=== PATIENT | male | born 1970 | race Caucasian/White ===

== ENCOUNTER 2021-12-05 03:25 | Outpatient (RCR) | payer MEDICAID, SELFPAY ==
[2021-12-05] MEDS: Normal Saline Flush 10 ML SYR IVP (12:35)
[2021-12-05 13:26] LABS: HCT 45.6 % (40.0-50.0); HGB 15.4 g/dL (13.5-17.5); MCH 31.6 pg (27.0-33.0); MCHC 33.8 % (32.0-36.0); MCV 93.6 fL (80-95); MPV 11.6 fL (8.0-11.0); Nucleated RBC 0 %; Platelet Count 119 10^3/uL (130-400); RBC 4.87 10^6/uL (4.36-5.78); RDW 11.3 % (11.8-14.1); RDW-SD 39.2 fL
[2021-12-05 13:36] LABS: ALT 72 U/L (16-63); AST 35 U/L (15-37); Albumin 3.3 g/dL (3.4-5.0); Alkaline Phosphatase 43 U/L (46-116); Anion Gap 5.3 mmol/L (3-11); BUN 12 mg/dL (7-18); Bilirubin, Total 1.2 mg/dL (0.2-1.0); CO2 29.7 mmol/L (21.0-32.0); CREATININE 0.7 mg/dL (0.70-1.30); Calcium 8.9 mg/dL (8.5-10.1); Chloride 97 mmol/L (98-107); Glucose 162 mg/dL (74-106); Magnesium 1.8 mg/dL (1.8-2.4); Potassium 4.1 mmol/L (3.5-5.1); Sodium 132 mmol/L (136-145); Total Protein 7.4 g/dL (6.4-8.2)
[2021-12-05 13:44] LABS: WBC 0.77 10^3/uL (4.4-10.8)
[2021-12-05 13:53] LABS: Absolute Lymphocyte Count 0.45 10^3/uL (1.2-3.4); Absolute Monocyte Count 0.05 10^3/uL (0.1-0.8); Absolute Neutrophil Count 0.28 10^3/uL (1.2-6.7); Atypical Lymphocytes % 4; Bands % 8
[2021-12-05 13:54] LABS: Diff Comment Manual Differential; RBC Morphology Normal
== END 2021-12-05 23:59 | disposition home or self-care (01) ==
LOC: INF 03:25
PROVIDERS: PCP Family Medicine; Visit Provider Internal Medicine Hematology & Oncology
DX: C02.9 Malignant neoplasm of tongue, unspecified (principal); Z45.2 Encounter for adjustment and management of vascular access device
CPT/HCPCS: 36591; 80053; 83735; 85025

== ENCOUNTER 2022-01-02 02:23 | Outpatient (RCR) | payer MEDICAID, SELFPAY ==
[2021-12-19] MEDS: Normal Saline Flush 10 ML SYR IVP (07:21)
[2021-12-19 07:42] LABS: Abs Immature Grans 0.05 10^3/uL (0.0-0.06); Absolute Basophil Count 0.06 10^3/uL (0.0-0.2); Absolute Eosinophil Count 0.04 10^3/uL (0.0-0.7); Absolute Lymphocyte Count 1.08 10^3/uL (1.2-3.4); Absolute Monocyte Count 0.66 10^3/uL (0.1-0.8); Absolute Neutrophil Count 7.01 10^3/uL (1.2-6.7); Basophils % 0.7; Eosinophils % 0.4; Immature Grans % 0.6; Lymphocytes % 12.1; MCH 30.7 pg (27.0-33.0); MCHC 32.6 % (32.0-36.0); MCV 94.3 fL (80-95); MPV 11.1 fL (8.0-11.0); Monocytes % 7.4; Neutrophils % 78.8; Nucleated RBC 0 %; Platelet Count 193 10^3/uL (130-400); RBC 4.56 10^6/uL (4.36-5.78); RDW 11.7 % (11.8-14.1); RDW-SD 40.5 fL
[2021-12-19 07:58] LABS: ALT 36 U/L (16-63); AST 17 U/L (15-37); Albumin 3.1 g/dL (3.4-5.0); Alkaline Phosphatase 48 U/L (46-116); Anion Gap 6.4 mmol/L (3-11); BUN 7 mg/dL (7-18); Bilirubin, Total 0.7 mg/dL (0.2-1.0); CO2 29.6 mmol/L (21.0-32.0); CREATININE 0.8 mg/dL (0.70-1.30); Calcium 8.5 mg/dL (8.5-10.1); Chloride 104 mmol/L (98-107); Glucose 178 mg/dL (74-106); Magnesium 1.8 mg/dL (1.8-2.4); Potassium 4.4 mmol/L (3.5-5.1); Sodium 140 mmol/L (136-145); Total Protein 6.9 g/dL (6.4-8.2)
== END 2022-01-05 23:59 | disposition home or self-care (01) ==
LOC: INF 02:23
PROVIDERS: PCP Family Medicine; Visit Provider Internal Medicine Hematology & Oncology
DX: C02.9 Malignant neoplasm of tongue, unspecified (principal); Z45.2 Encounter for adjustment and management of vascular access device
CPT/HCPCS: 36591; 80053; 83735; 85025

== ENCOUNTER → 2022-01-11 00:26 | Outpatient (CLI) | payer MEDICAID, SELFPAY ==
--- NOTE | 2022-01-11 10:42 | ST.MBS_ITS ---
Coding CPT Codes [facility] FLUOROSCOPY/SWALLOW - [id number] ([id number])
--- NOTE | 2022-01-11 10:42 | ST.MBS ---
Coding CPT Codes [facility]ION FLUOROSCOPY/SWALLOW - [id number] ([id number])
== END ==
PROVIDERS: PCP Family Medicine; Visit Provider Preventive Medicine Undersea and Hyperbaric Medicine

== ENCOUNTER 2022-01-30 04:19 | Outpatient (RCR) | payer MEDICAID, SELFPAY ==
[2022-01-09] MEDS: Normal Saline Flush 10 ML SYR IVP (08:36)
[2022-01-09 08:47] LABS: Abs Immature Grans 0.03 10^3/uL (0.0-0.06); Absolute Basophil Count 0.03 10^3/uL (0.0-0.2); Absolute Eosinophil Count 0.15 10^3/uL (0.0-0.7); Absolute Lymphocyte Count 1.01 10^3/uL (1.2-3.4); Absolute Monocyte Count 0.46 10^3/uL (0.1-0.8); Absolute Neutrophil Count 3.73 10^3/uL (1.2-6.7); Basophils % 0.6; Eosinophils % 2.8; HCT 38.5 % (40.0-50.0); HGB 12.5 g/dL (13.5-17.5); Immature Grans % 0.6; Lymphocytes % 18.7; MCH 30.9 pg (27.0-33.0); MCHC 32.5 % (32.0-36.0); MCV 95.1 fL (80-95); MPV 10.7 fL (8.0-11.0); Monocytes % 8.5; Neutrophils % 68.8; Nucleated RBC 0 %; Platelet Count 121 10^3/uL (130-400); RBC 4.05 10^6/uL (4.36-5.78); RDW 12.5 % (11.8-14.1); RDW-SD 42.6 fL; WBC 5.41 10^3/uL (4.4-10.8)
[2022-01-09 08:59] LABS: ALT 20 U/L (16-63); AST 15 U/L (15-37); Albumin 2.6 g/dL (3.4-5.0); Alkaline Phosphatase 44 U/L (46-116); Anion Gap 6.4 mmol/L (3-11); BUN 8 mg/dL (7-18); Bilirubin, Total 0.6 mg/dL (0.2-1.0); CO2 28.6 mmol/L (21.0-32.0); CREATININE 0.7 mg/dL (0.70-1.30); Calcium 7.3 mg/dL (8.5-10.1); Chloride 105 mmol/L (98-107); Glucose 148 mg/dL (74-106); Magnesium 1.3 mg/dL (1.8-2.4); Potassium 3.7 mmol/L (3.5-5.1); Sodium 140 mmol/L (136-145); Total Protein 5.7 g/dL (6.4-8.2)
== END 2022-02-04 23:59 | disposition home or self-care (01) ==
LOC: INF 04:19
PROVIDERS: PCP Family Medicine; Visit Provider Internal Medicine Hematology & Oncology
DX: C02.9 Malignant neoplasm of tongue, unspecified (principal); Z45.2 Encounter for adjustment and management of vascular access device
CPT/HCPCS: 36591; 80053; 83735; 85025

== ENCOUNTER 2022-03-06 00:46 | Outpatient (RCR) | payer MEDICAID, SELFPAY ==
[2022-02-06] MEDS: Normal Saline Flush 10 ML SYR IVP (09:48)
[2022-02-06 09:56] LABS: Abs Immature Grans 0.02 10^3/uL (0.0-0.06); Absolute Basophil Count 0.04 10^3/uL (0.0-0.2); Absolute Eosinophil Count 0.14 10^3/uL (0.0-0.7); Absolute Lymphocyte Count 0.82 10^3/uL (1.2-3.4); Absolute Monocyte Count 0.57 10^3/uL (0.1-0.8); Absolute Neutrophil Count 3.47 10^3/uL (1.2-6.7); Basophils % 0.8; Eosinophils % 2.8; HCT 36.8 % (40.0-50.0); HGB 11.9 g/dL (13.5-17.5); Immature Grans % 0.4; Lymphocytes % 16.2; MCH 30.7 pg (27.0-33.0); MCHC 32.3 % (32.0-36.0); MCV 95 fL (80-95); MPV 11.3 fL (8.0-11.0); Monocytes % 11.3; Neutrophils % 68.5; Platelet Count 110 10^3/uL (130-400); RBC 3.87 10^6/uL (4.36-5.78); RDW-SD 48.7 fL; WBC 5.06 10^3/uL (4.4-10.8)
[2022-02-06 10:20] LABS: ALT 17 U/L (16-63); AST 17 U/L (15-37); Albumin 3.2 g/dL (3.4-5.0); Alkaline Phosphatase 39 U/L (46-116); Anion Gap 4.1 mmol/L (3-11); BUN 10 mg/dL (7-18); Bilirubin, Total 0.5 mg/dL (0.2-1.0); CO2 31.9 mmol/L (21.0-32.0); CREATININE 0.7 mg/dL (0.70-1.30); Calcium 8.6 mg/dL (8.5-10.1); Chloride 103 mmol/L (98-107); Glucose 133 mg/dL (74-106); Magnesium 1.9 mg/dL (1.8-2.4); Potassium 4.2 mmol/L (3.5-5.1); Sodium 139 mmol/L (136-145); Total Protein 6.7 g/dL (6.4-8.2)
[2022-02-12 16:10] VITALS: BP 148/84; PULSE 90; RESP 18; TEMP 36.5; O2SAT 99
[2022-02-12] MEDS: Normal Saline Flush 10 ML SYR IVP (16:12)
[2022-02-12] MEDS: Dexamethasone 10 MG/ML VIAL IVP (16:12)
[2022-02-12] MEDS: Normal Saline 1,000 ML 1000 ML IV (16:13)
[2022-02-12] MEDS: Heparin 500 UNITS/5 ML SYRINGE IV (16:13)
[2022-02-27] MEDS: Normal Saline Flush 10 ML SYR IVP (09:11)
[2022-02-27 09:18] LABS: Abs Immature Grans 0.13 10^3/uL (0.0-0.06); Absolute Basophil Count 0.03 10^3/uL (0.0-0.2); Absolute Eosinophil Count 0.01 10^3/uL (0.0-0.7); Absolute Lymphocyte Count 0.89 10^3/uL (1.2-3.4); Absolute Monocyte Count 0.54 10^3/uL (0.1-0.8); Absolute Neutrophil Count 2.65 10^3/uL (1.2-6.7); Basophils % 0.7; Eosinophils % 0.2; HCT 34.2 % (40.0-50.0); HGB 11.1 g/dL (13.5-17.5); Immature Grans % 3.1; Lymphocytes % 20.9; MCH 30.2 pg (27.0-33.0); MCHC 32.5 % (32.0-36.0); MCV 93 fL (80-95); MPV 11.5 fL (8.0-11.0); Monocytes % 12.7; Neutrophils % 62.4; Platelet Count 171 10^3/uL (130-400); RBC 3.67 10^6/uL (4.36-5.78); RDW 13.7 % (11.8-14.1); RDW-SD 46.5 fL; WBC 4.25 10^3/uL (4.4-10.8)
[2022-02-27 09:32] LABS: ALT 28 U/L (16-63); AST 14 U/L (15-37); Albumin 3.3 g/dL (3.4-5.0); Alkaline Phosphatase 45 U/L (46-116); Anion Gap 6.4 mmol/L (3-11); BUN 13 mg/dL (7-18); Bilirubin, Total 0.5 mg/dL (0.2-1.0); CO2 30.6 mmol/L (21.0-32.0); CREATININE 0.8 mg/dL (0.70-1.30); Calcium 9.1 mg/dL (8.5-10.1); Chloride 102 mmol/L (98-107); Glucose 115 mg/dL (74-106); Potassium 4.5 mmol/L (3.5-5.1); Sodium 139 mmol/L (136-145); Total Protein 7.1 g/dL (6.4-8.2)
[2022-03-06] MEDS: Dexamethasone 10 MG/ML VIAL IVP (13:59)
[2022-03-06] MEDS: Ondansetron 4 MG/2 ML VIAL 8 MG IVP (13:59)
[2022-03-06] MEDS: Normal Saline 1,000 ML 1000 ML IV (13:59)
[2022-03-06] MEDS: Heparin 500 UNITS/5 ML SYRINGE IV (14:00)
[2022-03-06] MEDS: Normal Saline Flush 10 ML SYR IVP (14:00)
[2022-03-06 14:10] VITALS: BP 116/80; PULSE 89; RESP 18; TEMP 37.3; O2SAT 96
== END 2022-03-07 23:59 | disposition home or self-care (01) ==
LOC: INF 00:46
PROVIDERS: PCP Family Medicine; Visit Provider Internal Medicine Hematology & Oncology
DX: C02.9 Malignant neoplasm of tongue, unspecified (principal); Z45.2 Encounter for adjustment and management of vascular access device
CPT/HCPCS: 36591; 80053; 96360; 96361; 96365; 96374; 96523; 83735; 85025; J1100; J2405

== ENCOUNTER 2022-04-04 02:26 | Outpatient (RCR) | payer MEDICAID, SELFPAY ==
[2022-03-08 00:06] VITALS: BP 116/80; PULSE 89; RESP 18; TEMP 37.3
[2022-04-04] MEDS: Normal Saline Flush 10 ML SYR IVP (07:44)
[2022-04-04 07:55] LABS: Abs Immature Grans 0.04 10^3/uL (0.0-0.06); Absolute Basophil Count 0.04 10^3/uL (0.0-0.2); Absolute Eosinophil Count 1.02 10^3/uL (0.0-0.7); Absolute Lymphocyte Count 0.81 10^3/uL (1.2-3.4); Absolute Monocyte Count 0.54 10^3/uL (0.1-0.8); Absolute Neutrophil Count 5.96 10^3/uL (1.2-6.7); Basophils % 0.5; Eosinophils % 12.1; HCT 33.2 % (40.0-50.0); HGB 11.1 g/dL (13.5-17.5); Immature Grans % 0.5; Lymphocytes % 9.6; MCHC 33.4 % (32.0-36.0); MCV 93 fL (80-95); MPV 12.9 fL (8.0-11.0); Monocytes % 6.4; Neutrophils % 70.9; RBC 3.58 10^6/uL (4.36-5.78); RDW 13.2 % (11.8-14.1); RDW-SD 44.9 fL; WBC 8.41 10^3/uL (4.4-10.8)
[2022-04-04 08:09] LABS: Platelet Count 85 10^3/uL (130-400)
[2022-04-04 08:17] LABS: ALT 28 U/L (16-63); AST 18 U/L (15-37); Albumin 3.5 g/dL (3.4-5.0); Alkaline Phosphatase 47 U/L (46-116); Anion Gap 4.6 mmol/L (3-11); BUN 25 mg/dL (7-18); Bilirubin, Total 0.5 mg/dL (0.2-1.0); CO2 31.4 mmol/L (21.0-32.0); CREATININE 0.8 mg/dL (0.70-1.30); Calcium 9.1 mg/dL (8.5-10.1); Chloride 101 mmol/L (98-107); Glucose 164 mg/dL (74-106); Sodium 137 mmol/L (136-145); TSH 1.26 uIU/mL (0.36-3.74); Total Protein 7.3 g/dL (6.4-8.2)
[2022-04-04 08:31] LABS: T4 9.1 ug/mL (4.7-13.3)
== END 2022-04-06 23:59 | disposition home or self-care (01) ==
LOC: INF 02:26
PROVIDERS: PCP Family Medicine; Visit Provider Internal Medicine Hematology & Oncology
DX: C02.9 Malignant neoplasm of tongue, unspecified (principal); Z45.2 Encounter for adjustment and management of vascular access device
CPT/HCPCS: 36591; 80053; 84436; 84443; 85025

== ENCOUNTER 2022-04-24 01:12 | Outpatient (RCR) | payer MEDICAID, SELFPAY ==
[2022-04-07 00:04] VITALS: BP 116/80; PULSE 89; RESP 18; TEMP 37.3
[2022-04-24] MEDS: Normal Saline Flush 10 ML SYR IVP (12:14)
[2022-04-24 12:43] LABS: Abs Immature Grans 0.05 10^3/uL (0.0-0.06); Absolute Basophil Count 0.02 10^3/uL (0.0-0.2); Absolute Eosinophil Count 0.04 10^3/uL (0.0-0.7); Absolute Lymphocyte Count 0.82 10^3/uL (1.2-3.4); Absolute Monocyte Count 0.57 10^3/uL (0.1-0.8); Basophils % 0.2; Eosinophils % 0.4; HGB 12.3 g/dL (13.5-17.5); Immature Grans % 0.5; Lymphocytes % 8.3; MCH 31.2 pg (27.0-33.0); MCHC 33.2 % (32.0-36.0); MCV 94 fL (80-95); MPV 11.6 fL (8.0-11.0); Monocytes % 5.8; Neutrophils % 84.8; Platelet Count 110 10^3/uL (130-400); RBC 3.94 10^6/uL (4.36-5.78); RDW 13.9 % (11.8-14.1); RDW-SD 47.7 fL
[2022-04-24 13:09] LABS: ALT 26 U/L (16-63); AST 12 U/L (15-37); Albumin 3.4 g/dL (3.4-5.0); Alkaline Phosphatase 30 U/L (46-116); Anion Gap 5.2 mmol/L (3-11); BUN 28 mg/dL (7-18); Bilirubin, Total 0.6 mg/dL (0.2-1.0); CO2 32.8 mmol/L (21.0-32.0); CREATININE 0.8 mg/dL (0.70-1.30); Calcium 9.2 mg/dL (8.5-10.1); Chloride 101 mmol/L (98-107); FREE T4 0.85 ng/dL (0.76-1.46); Glucose 145 mg/dL (74-106); Potassium 3.5 mmol/L (3.5-5.1); Sodium 139 mmol/L (136-145); TSH 0.42 uIU/mL (0.36-3.74)
== END 2022-05-07 23:59 | disposition home or self-care (01) ==
LOC: INF 01:12
PROVIDERS: PCP Family Medicine; Visit Provider Internal Medicine Hematology & Oncology
DX: C02.9 Malignant neoplasm of tongue, unspecified (principal); Z45.2 Encounter for adjustment and management of vascular access device
CPT/HCPCS: 36591; 80053; 84439; 84443; 85025

== ENCOUNTER 2022-06-05 02:52 | Outpatient (RCR) | payer MEDICAID, SELFPAY ==
[2022-05-08 00:17] VITALS: BP 116/80; PULSE 89; RESP 18; TEMP 37.3
[2022-05-15] MEDS: Normal Saline Flush 10 ML SYR IVP (08:43)
[2022-05-15 08:50] LABS: Abs Immature Grans 0.11 10^3/uL (0.0-0.06); Absolute Basophil Count 0.01 10^3/uL (0.0-0.2); Absolute Eosinophil Count 0.01 10^3/uL (0.0-0.7); Absolute Lymphocyte Count 0.39 10^3/uL (1.2-3.4); Absolute Monocyte Count 0.46 10^3/uL (0.1-0.8); Absolute Neutrophil Count 6.63 10^3/uL (1.2-6.7); Basophils % 0.1; Eosinophils % 0.1; HCT 38.6 % (40.0-50.0); HGB 13.1 g/dL (13.5-17.5); Immature Grans % 1.4; Lymphocytes % 5.1; MCHC 33.9 % (32.0-36.0); MCV 94 fL (80-95); MPV 10.7 fL (8.0-11.0); Neutrophils % 87.3; RBC 4.09 10^6/uL (4.36-5.78); RDW 14.3 % (11.8-14.1); RDW-SD 49.6 fL; WBC 7.61 10^3/uL (4.4-10.8)
[2022-05-15 09:03] LABS: Platelet Count 76 10^3/uL (130-400)
[2022-05-15 09:17] LABS: ALT 37 U/L (16-63); AST 17 U/L (15-37); Albumin 3.1 g/dL (3.4-5.0); Alkaline Phosphatase 25 U/L (46-116); Anion Gap 4.6 mmol/L (3-11); BUN 26 mg/dL (7-18); Bilirubin, Total 0.7 mg/dL (0.2-1.0); CO2 36.4 mmol/L (21.0-32.0); CREATININE 0.7 mg/dL (0.70-1.30); Calcium 8.8 mg/dL (8.5-10.1); Chloride 98 mmol/L (98-107); Glucose 143 mg/dL (74-106); Potassium 4.1 mmol/L (3.5-5.1); Sodium 139 mmol/L (136-145); T4 5.1 ug/mL (4.7-13.3); TSH 0.17 uIU/mL (0.36-3.74); Total Protein 6.7 g/dL (6.4-8.2)
[2022-06-05] MEDS: Normal Saline Flush 10 ML SYR IVP (11:06)
[2022-06-05 11:21] LABS: Abs Immature Grans 0.26 10^3/uL (0.0-0.06); Absolute Basophil Count 0.02 10^3/uL (0.0-0.2); Absolute Lymphocyte Count 0.16 10^3/uL (1.2-3.4); Absolute Monocyte Count 0.42 10^3/uL (0.1-0.8); Absolute Neutrophil Count 8.51 10^3/uL (1.2-6.7); Basophils % 0.2; HCT 39.6 % (40.0-50.0); HGB 13.4 g/dL (13.5-17.5); Immature Grans % 2.8; Lymphocytes % 1.7; MCH 32.3 pg (27.0-33.0); MCHC 33.8 % (32.0-36.0); MCV 95 fL (80-95); MPV 10.8 fL (8.0-11.0); Monocytes % 4.5; Neutrophils % 90.8; RBC 4.15 10^6/uL (4.36-5.78); RDW 14.8 % (11.8-14.1); RDW-SD 51.9 fL; WBC 9.37 10^3/uL (4.4-10.8)
[2022-06-05 11:38] LABS: Diff Comment Diff Reviewed; Platelet Count 99 10^3/uL (130-400); RBC Morphology Normal
[2022-06-05 11:44] LABS: ALT 39 U/L (16-63); AST 16 U/L (15-37); Albumin 3.2 g/dL (3.4-5.0); Alkaline Phosphatase 21 U/L (46-116); Anion Gap 4.8 mmol/L (3-11); BUN 31 mg/dL (7-18); Bilirubin, Total 0.7 mg/dL (0.2-1.0); CO2 38.2 mmol/L (21.0-32.0); CREATININE 0.7 mg/dL (0.70-1.30); Calcium 9.1 mg/dL (8.5-10.1); Chloride 100 mmol/L (98-107); Glucose 189 mg/dL (74-106); Magnesium 2.1 mg/dL (1.8-2.4); Potassium 4.3 mmol/L (3.5-5.1); Sodium 143 mmol/L (136-145); T4 3.9 ug/mL (4.7-13.3); TSH 0.13 uIU/mL (0.36-3.74); Total Protein 6.5 g/dL (6.4-8.2)
== END 2022-06-07 23:59 | disposition home or self-care (01) ==
LOC: INF 02:52
PROVIDERS: PCP Family Medicine; Visit Provider Internal Medicine Hematology & Oncology
DX: Z45.2 Encounter for adjustment and management of vascular access device (principal); C02.9 Malignant neoplasm of tongue, unspecified
CPT/HCPCS: 36591; 80053; 83735; 84436; 84443; 85025